=== PATIENT | female | born 1985 | race Caucasian/White ===

== ENCOUNTER → 2020-07-19 09:35 | Outpatient (CLI) | payer OTHER ==
[~2020-07-19 09:35] MED LIST: IRON325 MG PO
== END | disposition home or self-care (01) ==
LOC: LAB 09:35
PROVIDERS: ATTEND Internal Medicine
DX: R05 Cough (principal); Z11.2 Encounter for screening for other bacterial diseases

== ENCOUNTER 2023-08-29 08:18 | Outpatient (CLI) | payer OTHER | END 2023-08-29 08:35 | disposition home or self-care (01) | LOC: RAD 08:18 | PROVIDERS: ATTEND Radiology Diagnostic Radiology | DX: J12.0 Adenoviral pneumonia (principal) ==

== ENCOUNTER 2024-06-13 12:30 | Inpatient (IN) | payer OTHER ==
[~2024-06-13] VITALS: Ht 157.5 cm; Wt 49.9 kg
[2024-06-13] MEDS ORDERED: CELEXA10 MG PO (15:07)
[2024-06-18] MEDS ORDERED: DIBUCAINE 30 GM TUBE ONE (06:42)
[2024-06-18] MEDS ORDERED: HEMOSTATIC MATRIX 1 KIT KIT TOP ONE (06:42)
[2024-06-18] MEDS ORDERED: BUPIVACAINE HCL/MPF 0.5% 30ML VIAL ONE (06:43)
[2024-06-18] MEDS ORDERED: POVIDONE-IODINE 118 ML BOTT TOP ONE (06:43)
[2024-06-18] MEDS ORDERED: LIDOCAINE HCL 1%/EPINEPHRINE 20ML VIAL IJ ONE (06:43)
[2024-06-18] MEDS ORDERED: CEFTRIAXONE SODIUM 2,000 MG VIAL ONE (06:44)
[2024-06-18] MEDS ORDERED: METRONIDAZOLE/SODIUM CHLORIDE 500 MG/100 ML PIGGYBACK IV ONE (06:44)
[2024-06-18] MEDS ORDERED: OxyCODONE HCL 5 MG TABLET (ROXICODONE) PO PRN (09:15)
[2024-06-18] MEDS ORDERED: DEXTROSE 50 % IN WATER 0.5 G/ML DISP.SYRIN IV PRN (09:15)
[2024-06-18] MEDS ORDERED: 0.9 % SODIUM CHLORIDE 1,000 ML IV SCH (09:15)
[2024-06-18] MEDS ORDERED: MORPHINE SULFATE 4 MG/ML CARTRIDGE IV PRN (09:15)
[2024-06-18] MEDS ORDERED: ONDANSETRON HCL 2 MG/ML VIAL IV PRN (09:15)
[2024-06-18] MEDS ORDERED: ACETAMINOPHEN 500 MG GEL..CAP PO ONE (12:35)
[2024-06-18 12:46] LABS: HEMATOCRIT 34.4 % (36.0-45.00); HEMOGLOBIN 11.3 g/dL (12.0-15.00); MEAN CELL VOLUME 81.5 fL (80.00-100.00); MEAN CORPUSCULAR HEMOGLOBIN 26.8 pg (27.00-32.0); PLATELET COUNT 263 K/uL (150-450); RED BLOOD COUNT 4.22 M/uL (4.00-6.00); RED CELL DISTRIBUTION WIDTH 16.5 % (11.5-14.5)
[2024-06-18] MEDS ORDERED: ACETAMINOPHEN 500 MG GEL..CAP PO SCH (14:00)
[2024-06-18] MEDS ORDERED: POLYETHYLENE GLYCOL 3350 17 GM BLIST.PACK PO SCH (17:00)
[2024-06-18] MEDS ORDERED: GABAPENTIN 300 MG CAPSULE PO SCH (17:00)
[2024-06-18] MEDS ORDERED: HYOSCYAMINE SULFATE 0.125 MG TAB.SUBL SL SCH (17:00)
[2024-06-18] MEDS ORDERED: FAMOTIDINE/PF 20 MG/2 ML VIAL IV PUSH SCH (21:00)
[2024-06-19 07:25] LABS: HEMATOCRIT 35.5 % (36.0-45.00); HEMOGLOBIN 11.5 g/dL (12.0-15.00); MEAN CELL VOLUME 82.6 fL (80.00-100.00); MEAN CORPUSCULAR HEMOGLOBIN 26.8 pg (27.00-32.0); MEAN CORPUSCULAR HGB CONC 32.5 g/dl (32.0-36.0); PLATELET COUNT 251 K/uL (150-450); RED BLOOD COUNT 4.29 M/uL (4.00-6.00); RED CELL DISTRIBUTION WIDTH 16.8 % (11.5-14.5)
[2024-06-19 07:40] LABS: ALBUMIN 3.8 gm/dL (3.4-5.0); CALCIUM 8.8 mg/dL (8.5-10.1); CREATININE SERUM 0.58 mg/dL (0.55-1.02); GFR 115.14; PHOSPHOROUS 2.9 mg/dL (2.5-4.9); POTASSIUM 4.07 mEq/L (3.5-5.1)
[2024-06-19] MEDS ORDERED: CELEXA 10 MG PO SCH (09:00)
[2024-06-19] MEDS ORDERED: CIPROFLOXACIN IN 5 % DEXTROSE 400 MG/200 ML PIGGYBAG IV SCH (09:29)
[2024-06-19] MEDS ORDERED: METRONIDAZOLE/SODIUM CHLORIDE 500 MG/100 ML PIGGYBACK IV SCH (09:29)
[2024-06-19] MEDS ORDERED: ENOXAPARIN SODIUM 40 MG/0.4 ML SYRINGE SUBCUTANEO SCH (17:00)
[2024-06-20] MEDS ORDERED: ENOXAPARIN SODIUM 40 MG/0.4 ML SYRINGE SUBCUTANEO SCH (09:00)
== END 2024-06-20 10:33 | disposition home or self-care (01) | DRG 349 ==
LOC: O/R 06-18 05:30 → SURG 06-18 05:30 → SURH 06-18 07:00 → SURG 06-18 10:09 → SURH 06-18 12:30 → SURG 06-20 10:33
PROVIDERS: ADMIT Surgery; ATTEND Surgery
PROC: 0WQN0ZZ Repair Female Perineum, Open Approach (ICD-10-PCS; 2024-06-18)
PROC: 0DUR0JZ Supplement Anal Sphincter with Synthetic Substitute, Open Approach (ICD-10-PCS; principal; 2024-06-18 07:00)
DX: R15.9 Full incontinence of feces (principal); K62.81 Anal sphincter tear (healed) (nontraumatic) (old)